=== PATIENT | female | born 1990 | race Caucasian/White ===

== ENCOUNTER → 2017-05-05 | Outpatient (REF) | payer OTHER | LOC: M LAB REF 09:43 | PROVIDERS: ATTEND Physician Assistant | DX: J02.9 Acute pharyngitis, unspecified (principal) ==

== ENCOUNTER → 2017-09-22 | Outpatient (REF) | payer OTHER | LOC: M LAB 11:32 | DX: J02.9 Acute pharyngitis, unspecified (principal) ==

== ENCOUNTER 2018-11-28 02:12 | Emergency (ER) | payer BC, OTHER ==
[~2018-11-28] VITALS: Ht 160 cm; Wt 100.0 kg
[2018-11-28] MEDS ORDERED: ENSK1TAB3 PO (02:16)
[2018-11-28] MEDS ORDERED: IBUPROFEN 600 MG TAB PO ONE (04:15)
[2018-11-28 06:14] VITALS: BP 124/81
--- NOTE | 2018-11-28 06:37 | REP ---
Clinical: Right ankle pain . Technique: AP, lateral, bilateral oblique views. Findings: No acute fracture or dislocation. Skeletal structures and joint spaces are intact and normal. Ankle mortise appears stable. No subcutaneous emphysema or radiodense foreign body. Impression: Normal right ankle radiograph series. Electronically Signed by Patrice Stoddard MD 11/28/2018 06:29 A
== END 2018-11-28 06:32 | disposition home or self-care (01) ==
LOC: M ED 02:12
DX: S99.921A Unspecified injury of right foot, initial encounter (principal); W17.89XA Other fall from one level to another, initial encounter; Y92.018 Other place in single-family (private) house as the place of occurrence of the external cause; Z79.3 Long term (current) use of hormonal contraceptives

== ENCOUNTER → 2019-11-10 | Outpatient (REF) | payer BC ==
[~2019-11-10] MED LIST: ENSK1TAB3 PO
[2019-11-10 17:38] LABS: HEMATOCRIT 43.6 % (36.0-47.0); HEMOGLOBIN 14.9 g/dl (12.0-15.5); MEAN CORPUSCULAR HEMOGLOBIN 30.5 pg (27.0-33.0); MEAN CORPUSCULAR HGB CONC 34.2 g/dl (32.0-36.5); MEAN CORPUSCULAR VOLUME 89.2 fl (80.0-96.0); PLATELET COUNT, AUTOMATED 253 10^3/uL (150-450); RED BLOOD COUNT 4.89 10^6/uL (4.00-5.40); WHITE BLOOD COUNT 9.1 10^3/uL (4.0-10.0)
[2019-11-11 08:50] LABS: HEPATITIS B SURFACE ANTIGEN NEGATIVE (NEGATIVE); HEPATITIS C VIRUS ABY INDEX 0.1 INDEX (<0.8); HIV 1&2 SCREEN CENTAUR NEGATIVE (NEGATIVE); RUBELLA IgG QUALITATIVE IMMUNE (IMMUNE)
== END ==
LOC: M PLALAB 14:15
PROVIDERS: ATTEND Advanced Practice Midwife
DX: Z34.01 Encounter for supervision of normal first pregnancy, first trimester (principal)

== ENCOUNTER → 2019-11-13 | Outpatient (REF) | payer BC ==
[2019-11-13 19:02] LABS: CHLAMYDIA DNA AMPLIFICATION NEGATIVE (NEGATIVE); GC DNA AMPLIFICATION NEGATIVE (NEGATIVE)
== END ==
LOC: M SFHCWAGY 16:49
PROVIDERS: ATTEND Advanced Practice Midwife
DX: Z34.01 Encounter for supervision of normal first pregnancy, first trimester (principal)

== ENCOUNTER → 2020-01-13 | Outpatient (CLI) | payer BC ==
--- NOTE | 2020-01-14 03:31 | REP ---
Clinical: Anatomical evaluation. Comparison: None . Findings: Examination demonstrates a single live intrauterine in transverse lie (head to maternal right). motion is identified by technologist. Placenta is noted posterior and grade zero without evidence for placenta previa or abruption. Amniotic fluid volume is normal. Cervix measures 3.9 cm in length and appears closed. No evidence for nuchal cord. Gestational age by current measurements 18 weeks 6 days with EFREN 06/09/2020 . FHR equals 142 beats per minute. BPD 4.3 cm 18 weeks 6 days HC 16.1 cm 18 weeks 6 days AC 13.6 cm 19 weeks 0 days FL 2.9 cm 19 weeks 0 days HL 2.8 cm 19 weeks 1 day HC/AC ratio 1.18 Estimated weight 270 grams ( 54th percentile). Anatomical assessment demonstrates normal structures including cranium, choroid plexus, cavum, cerebellum/posterior fossa, lungs, diaphragm, stomach, cord insertion/three-vessel cord, kidneys/bladder, spine, and extremities. Limited evaluation of the facial features and heart/ventricular outflow tracts noted. Impression: Single live intrauterine in transverse lie demonstrating appropriate estimated weight. Limited evaluation of the facial features and heart/ventricular outflow tracts. Remainder of the anatomical assessment is complete and normal.
== END ==
LOC: M WHC 12:55
PROVIDERS: ATTEND Advanced Practice Midwife
DX: Z36.89 Encounter for other specified antenatal screening (principal); O32.2XX0 Maternal care for transverse and oblique lie, not applicable or unspecified; Z3A.18 18 weeks gestation of pregnancy

== ENCOUNTER → 2020-01-29 | Outpatient (CLI) | payer BC ==
--- NOTE | 2020-01-29 14:58 | REP ---
REASON: Followup. Prior examination, 01/13/2020 failed to optimally visualize facial features, four-chamber heart, and ventricular outflow tracts. Multiple ultrasonographic images of the gravid uterus show a single living intrauterine gestation in the head to maternal left transverse lie. Doppler interrogation of the heart shows heart rate of 129 beats per minute. The placenta is posterior and not low lying. The subjective amniotic fluid volume is within normal limits. The cervix measures 4.4 cm in length and is closed. BPD 4.7 cm = 20 weeks 1 day HC 19.1 cm = 21 weeks 2 days AC 16.0 cm = 21 weeks 1 day FL 3.6 cm = 21 weeks 2 days The estimated weight is 405 grams, which is at the 49th percentile for a 21 week 1 day gestational age. The upper lip was well seen today and had a normal appearance. The four-chamber heart view, left ventricular outflow tract, and right ventricular outflow tract were still suboptimally visualized. IMPRESSION: Single living intrauterine gestation as described above with an estimated gestational age of 21 weeks 0 days via composite criteria and an estimated date of delivery of 06/10/2020 by today's exam. No anomalies were detected, however, the anatomical screen remains incomplete, as described above, and for which followup is recommended.
== END ==
LOC: M WHC 10:24
PROVIDERS: ATTEND Advanced Practice Midwife
DX: O99.212 Obesity complicating pregnancy, second trimester (principal)

== ENCOUNTER → 2020-02-16 | Outpatient (CLI) | payer BC ==
--- NOTE | 2020-02-16 11:58 | REP ---
Clinical: Anatomical evaluation. Comparison: 01/29/2020 . Findings: Examination demonstrates a single live intrauterine in variable presentation. motion is identified by technologist. Placenta is noted posterior and grade I without evidence for placenta previa or abruption. Amniotic fluid volume is normal. Cervix measures 4.6 cm in length and appears closed. No evidence for nuchal cord. Gestational age by LMP 23 weeks 5 days with EFREN 06/09/2020 . Gestational age by current measurements 23 weeks 2 day with EFREN 06/12/2020 . FHR equals 156 beats per minute. Estimated weight 597 grams ( 38th percentile). Anatomical assessment demonstrates normal structures including cranium, facial features, lungs, four-chamber heart/ventricular outflow tracts, stomach, cord insertion, kidneys/bladder. Impression: Single live intrauterine in variable presentation demonstrating appropriate interval growth. In conjunction with prior examination anatomical assessment is complete and normal.
== END ==
LOC: M WHC 09:24
PROVIDERS: ATTEND Advanced Practice Midwife
DX: O99.212 Obesity complicating pregnancy, second trimester (principal); Z36.2 Encounter for other antenatal screening follow-up; Z3A.23 23 weeks gestation of pregnancy

== ENCOUNTER → 2020-03-02 | Outpatient (REF) | payer BC ==
[~2020-03-02] MED LIST changes: +PRENTAB9 PO
[2020-03-02 13:51] LABS: HEMATOCRIT 33.9 % (36.0-47.0); HEMOGLOBIN 11.5 g/dl (12.0-15.5); MEAN CORPUSCULAR HGB CONC 33.9 g/dl (32.0-36.5); MEAN CORPUSCULAR VOLUME 97.4 fl (80.0-96.0); PLATELET COUNT, AUTOMATED 218 10^3/uL (150-450); RED BLOOD COUNT 3.48 10^6/uL (4.00-5.40); WHITE BLOOD COUNT 8.6 10^3/uL (4.0-10.0)
== END ==
LOC: M PLALAB 09:47
PROVIDERS: ATTEND Advanced Practice Midwife
DX: O99.212 Obesity complicating pregnancy, second trimester (principal); Z3A.00 Weeks of gestation of pregnancy not specified; E66.9 Obesity, unspecified
CPT/HCPCS: 36415; 82950; 85027; 86850; 86900; 86901; J2790

== ENCOUNTER → 2020-05-10 | Outpatient (REF) | payer BC | LOC: M SFHCWAGY 10:08 | PROVIDERS: ATTEND Specialist | DX: Z34.83 Encounter for supervision of other normal pregnancy, third trimester (principal); Z3A.00 Weeks of gestation of pregnancy not specified ==

== ENCOUNTER 2020-06-09 19:48 | Inpatient (IN) | payer BC ==
[2020-06-09] VITALS (17 sets, daily range): BP systolic 116–138; BP diastolic 60–89
[~2020-06-09] VITALS: Ht 160 cm; Wt 111.8 kg
[~2020-06-09 19:48] MED LIST changes: -PRENTAB9 PO
[2020-06-09] MEDS ORDERED: PRENTAB9 PO (20:31)
[2020-06-09] MEDS ORDERED: LACTATED RINGER'S 1000 ML IV STA (21:13)
[2020-06-09 21:23] LABS: HEMATOCRIT 39.8 % (36.0-47.0); HEMOGLOBIN 13.7 g/dl (12.0-15.5); MEAN CORPUSCULAR HEMOGLOBIN 31.6 pg (27.0-33.0); MEAN CORPUSCULAR HGB CONC 34.4 g/dl (32.0-36.5); MEAN CORPUSCULAR VOLUME 91.7 fl (80.0-96.0); PLATELET COUNT, AUTOMATED 211 10^3/uL (150-450); RED BLOOD COUNT 4.34 10^6/uL (4.00-5.40); WHITE BLOOD COUNT 15.2 10^3/uL (4.0-10.0)
[2020-06-09] MEDS ORDERED: FENTANYL 2MCG/ML ROPIVACAINE 0.2% IN 0.9% NACL 100ML IVBAG As Ordered ONE (22:12)
[2020-06-09] MEDS: LR 1,000 ML IV SCH (22:25)
--- NOTE | 2020-06-09 23:02 | HPEPDOC ---
Obstetrical History & Physical General Date of Admission Jun 09, 2020 at 20:57 History of Present Illness Rayne is a 29yo with SIUP at 40w2d by lmp c/w 9wk u/s presenting with CC of painful, regular ctx. She states she began tristen around 0600 today. Had routine OB visit and was 3/-2, had sweeping performed. Since clinic visit, ctx are getting closer and more painful. Feels good FM, no vaginal bleeding, no LOF. Chief Complaint: Contractions, term Information Provided By: Patient Care Care: Good Care Dating Final EDC: Jun 07, 2020 Final EDC by: LMP, 1st trimester (US) Antepartum Course Diagnos(e)s Morbid obesity, Rh negative, received rhogam 03/30/20 Height (inches): 63 Pre- weight (lbs.): 246 Past Medical History Past Obstetrical History : Past Obstetrical History: Primgravida [employer]PHOL[employer]PER History: No pertinent history Past Medical History Medical History Obesity Surgical History: Ferron teeth Family History Significant Family History: No pertinent family hx Social History Family situation: Spouse/partner home Psychosocial History: No pertinent psych hx * Smoker: non-smoker Alcohol: Denies Drugs: denies Allergies Coded Allergies: No Known Allergies (Verified Allergy, Unknown, 11/28/18) Medications Scheduled Desogestrel-Ethinyl Estradiol (Enskyce 28 Tablet) 1 Each Tablet, 1 TAB PO DAILY No.137/Iron/Folic Acd ( Vitamin Tablet) 1 Each Tablet, 1 TAB PO DAILY Physical Examination Physical Examination GENERAL: Alert and oriented times three. ABDOMEN: Gravid and non-tender to touch. FETUS: Is vertex (VTX) by sterile vaginal examination (SVE) EXTREMITIES: trace edema BLE Vital Signs/I&O Vital Signs Date Time Temp Pulse Resp B/P (MAP) Pulse Ox O2 Delivery O2 Flow Rate FiO2 06/09/20 20:12 98.3 95 18 138/89 (105) Laboratory Data 24H LABS Laboratory Tests 2 06/09/20 21:02: Serology Scanned Report Hepatitis B Testing 06/09/20 21:18: Nucleated Red Blood Cells % (auto) 0.0 CBC/BMP Laboratory Tests 06/09/20 21:18 Pertinent Laboratoy Data Blood Type: A- RBC Antibody Screen: Negative HIV: Negative Hepatitis B: Negative Hepatitis C: Negative Rapid Plasma Reagin: Nonreactive Rubella: Immune Chlamydia/Gonorrhea: Negative Group B Streptococcus: Negative Glucose Tolerance Test: 125 Anatomy Ultrasound Ultrasound Date: January 13, 2020 Placenta Location: Posterior Normal Anatomy: Yes Placenta Previa: No Other Ultrasounds f/u u/s for further views on 01/28 and 02/05 Steroid Therapy Steroid Therapy: No Vaginal Examination Dilation: 5 cm Effacement: 90% Station: -2 Cervical Consistency: Soft Cervical Position: Middle Presentation: Cephalic presentation Assessment Heart Rate (FHR): 150 Variability: Moderate Accelerations: Positive Decelerations: None Tocometer Contractions: Yes Frequency: regular, every 2-5 min. Duration: greater than 60 seconds Strength: palpated as moderate Assessment/Plan Assessment Rayne is a 29yo with SIUP at 40w2d by lmp c/w 9wk u/s in active labor with SCE 5/90/-2, regular ctx. Cat I FHRT. Vitals wnl. Benign exam. Cephalic by SCE. GBS neg. PMhx/PNC significant for: Morbid obesity, Rh negative, received rhogam 03/30/20 Plan Admit and orient. Pick Up And Delivery Driver and consent. Diet: clear liquids Group B Streptococcus (GBS) negative Labs and intravenous (IV) per unit protocol. Lactated Ringers (LR): Bolus 800 mL, then at 125 mL/hr prior to epidural Anticipate normal spontaneous delivery () MD Evelia Bragg Katrina D MD Jun 09, 2020 22:59
[2020-06-10] VITALS (9 sets, daily range): BP systolic 104–126; BP diastolic 53–78
[2020-06-10] MEDS ORDERED: EPIDURAL/PCA KEYS XX PRN (00:15)
[2020-06-10] MEDS ORDERED: ONDANSETRON 4MG/2ML VIAL IV PRN (00:15)
[2020-06-10] MEDS ORDERED: FENTANYL/ROPIVACAINE/NACL BAG 100 ML EPIDURAL SCH (00:15)
[2020-06-10] MEDS ORDERED: EPIDURAL COMMENT XX SCH (00:15)
[2020-06-10] MEDS ORDERED: REFRIGERATOR IV KEYS XX PRN (00:15)
[2020-06-10] MEDS ORDERED: ePHEDrine SULFATE 25 MG/5 ML(5MG/ML) SYRINGE IV PRN (00:15)
[2020-06-10] MEDS ORDERED: NALOXONE INJ 0.4MG/1ML VIAL (J2310 PER 1MG) IV PRN (00:15)
[2020-06-10] MEDS ORDERED: LACTATED RINGER'S 1000 ML IV PRN (00:15)
[2020-06-10] MEDS ORDERED: diphenhydrAMINE 50MG/ML VIAL (J1200) IV PRN (00:15)
[2020-06-10] MEDS ORDERED: OXYTOCIN 30 UNITS IN 0.9% NaCl 500ML IV BAG (J2590) As Ordered ONE (03:48)
--- NOTE | 2020-06-10 03:56 | IPNPDOC ---
Text Note Date of Service The patient was seen on 06/10/20. NOTE Intrapartum Note Pt doing well, comfortable with epidural. Vitals wnl, afebrile Cat I-II FHRT with mod shayy, +accels, occasional small non-repetitive variable decels Ctx q5 min SCE: C/C/0, AROM performed with mod mec noted Tried practice pushes with 2 ctx, given spacing between ctx will start pitocin and titrate up per protocol to adequate ctx pattern Will allow for passive descent x1 and then begin pushing in earnest Will continue to closely monitor NICU DrNadine will be notified of mec Safe to proceed Yamila Altamirano MD VS,Pretty, I+O VSPretty I+O Laboratory Tests 06/09/20 21:18 Vital Signs Date Time Temp Pulse Resp B/P (MAP) Pulse Ox O2 Delivery O2 Flow Rate FiO2 06/10/20 00:07 81 108/53 (71) 06/09/20 23:36 98.3 18 Yamila Altamirano MD Jun 10, 2020 03:55
[2020-06-10] MEDS ORDERED: OXYTOCIN DRIP 30 UNITS in IV 1 EA IV SCH ×2 (04:00→07:50)
[2020-06-10] MEDS: LR 1,000 ML IV SCH (04:50)
[2020-06-10] MEDS ORDERED: METHYLERGONOVINE MALEATE 0.2 MG/ML VIAL (J2210) As Ordered ONE (07:00)
--- NOTE | 2020-06-10 07:49 | DNPDOC ---
[facility] Delivery Note Delivery Note DATE OF DELIVERY: 06/10/2020 PREDELIVERY DIAGNOSIS: 40w3d gestation and labor. POST DELIVERY DIAGNOSIS: Delivered. PROCEDURE: Spontaneous vaginal delivery MACHINE FILLER: Dr. Yamila Altamirano MD ANESTHESIA: epidural ESTIMATED BLOOD LOSS: 300 mL. FINDINGS: 8 pound 6 ounce (3800g) female , Score 9/9 DELIVERY SUMMARY: Rayne is a 29yo [id number] s/p uncomplicated at 40w3d after presenting in active labor at 5cm, delivering at 0650 on 06/10/20. She received an epidural and at C/C she had AROM with moderate meconium noted. She did passive descent fo r an hour and then began pushing. With good maternal effort, infant's head delivered OA, restituted JENNIFER. The left anterior shoulder delivered with ease and the corpus immediately followed. The was placed on the maternal abdomen, spontaneous cry noted. Nose and mouth suctioned with bulb suction, apgars 9/9. After two minutes, cord was clamped and cut by FOB. Cord blood obtained for MBT A neg. With traction on the cord and uterine massage, placenta delivered spontaneously and intact with centrally inserted 3 vessel cord. IV pitocin given per protocol. More uterine massage performed and fundus then firm at u-2cm after a dose of 0.2mg methergine IM was given. Inspection of vagina and perineum revealed a left labial laceration and small 2mll repaired in routine fashion using 3-0 vicryl with excellent reapproximation. Tissue was edematous and each poke of the suture needle caused oozing, so one laparotomy sponge was left to compress just inside the vagina and plan is to remove it in 1 hour. Otherwise counts correct. Both mom and baby were doing well when I left the room. MD Evelia Bragg Katrina D MD Jun 10, 2020 07:49
[2020-06-10] MEDS ORDERED: DIBUCAINE 1% OINTMENT 30GM TOP PRN (08:00)
[2020-06-10] MEDS ORDERED: METHYLERGONOVINE MALEATE 0.2 MG/ML VIAL (J2210) IM ONE (08:00)
[2020-06-10] MEDS ORDERED: ACETAMINOPHEN TAB 650MG DOSE (2X325MG) PO PRN (08:00)
[2020-06-10] MEDS ORDERED: IBUPROFEN 600MG TAB PO PRN (08:00)
[2020-06-10] MEDS ORDERED: RHOGAM 300 MCG (1500 IU) INJ (J2790) IM SCH (08:00)
[2020-06-10] MEDS ORDERED: MEASLES,MUMPS,RUBELLA VACCINE INJ (MMR-II) (90707) SC SCH (08:00)
[2020-06-10] MEDS: PRENATAL VITAMINS CHEWABLE TABLET PO SCH (08:58)
[2020-06-10] MEDS: IBUPROFEN 800 MG TAB PO PRN ×2 (08:58→18:11)
[2020-06-10] MEDS: DOCUSATE SODIUM 100 MG CAP PO PRN (20:41)
[2020-06-10] MEDS: ACETAMINOPHEN 500 MG TAB PO PRN (23:36)
[2020-06-11 06:00] VITALS: BP 118/72
--- NOTE | 2020-06-11 07:15 | IPNPDOC ---
Text Note Date of Service The patient was seen on 06/11/20. NOTE PP #1 Feels well. No complaints. . Adequate pain management. Voiding. VSS, afebrile, normotensive Breasts soft, nipples intact Fundus firm, NT, down 1 FB Perineum well approximated without edema Lochi rubra light without odor PP #1, routine care Anticipate D/C in am VS,Fishbone, I+O VS, Fishbone, I+O Vital Signs Date Time Temp Pulse Resp B/P (MAP) Pulse Ox O2 Delivery O2 Flow Rate FiO2 06/11/20 06:00 98.5 84 18 118/72 (87) 06/10/20 10:00 97 I&O- Last 24 Hours up to 6 AM 06/11/20 06:00 Intake Total 3913 ml Output Total 1100 ml Balance 2813 ml Joanie Scott CNM Jun 11, 2020 07:15
[2020-06-11] MEDS: PRENATAL VITAMINS CHEWABLE TABLET PO SCH (07:47)
[2020-06-11] MEDS: IBUPROFEN 800 MG TAB PO PRN ×2 (07:48→16:42)
[2020-06-11 18:00] VITALS: BP 118/65
[2020-06-11] MEDS: DOCUSATE SODIUM 100 MG CAP PO PRN (19:56)
[2020-06-11] MEDS: ACETAMINOPHEN 500 MG TAB PO PRN (19:57)
[2020-06-12 06:00] VITALS: BP 126/68
[2020-06-12] MEDS: PRENATAL VITAMINS CHEWABLE TABLET PO SCH (08:36)
[2020-06-12] MEDS: IBUPROFEN 800 MG TAB PO PRN (08:37)
--- NOTE | 2020-06-12 10:20 | IPNPDOC ---
Progress Note Date of Service: Jun 12, 2020 Day#: 2 Progress Note SUBJECT: Status post . She has been ambulating, voiding spontaneously without issue and tolerating regular diet. Lochia decreasing/minimal. Patient is ambulating well. OBJECTIVE: VITAL SIGNS: Within normal limits, afebrile. Alert and oriented times three. Abdomen: Fundus firm at U-2. Soft, NTTP. ASSESSMENT: Status post uncomplicated spontaneous vaginal delivery. Vitals within normal limits, afebrile, hemodynamically stable with no evidence of infection. PLAN: Discharge to home today. Tylenol and Motrin for pain. Routine instructions/precautions reviewed. Routine PP visit in 6 weeks in clinic. VS, I&O, 24H, Fishbone Vital Signs/I&O Vital Signs Date Time Temp Pulse Resp B/P (MAP) Pulse Ox O2 Delivery O2 Flow Rate FiO2 06/12/20 06:00 96.7 82 16 126/68 (87) 06/11/20 18:00 Room Air 06/10/20 10:00 97 BETTY CURRY DO Jun 12, 2020 10:20
== END 2020-06-12 12:40 | disposition home or self-care (01) | DRG 560 ==
LOC: M LDO 19:48 → M LDI 20:57 → M OBS 06-10 09:39
PROVIDERS: ADMIT Obstetrics & Gynecology; ATTEND Obstetrics & Gynecology
PROC: 10E0XZZ Delivery of Products of Conception, External Approach (ICD-10-PCS; principal; 2020-06-10)
PROC: 0KQM0ZZ Repair Perineum Muscle, Open Approach (ICD-10-PCS; 2020-06-10)
PROC: 10907ZC Drainage of Amniotic Fluid, Therapeutic from Products of Conception, Via Natural or Artificial Opening (ICD-10-PCS; 2020-06-10)
DX: O48.0 Post-term pregnancy (principal); Z3A.40 40 weeks gestation of pregnancy; O99.214 Obesity complicating childbirth; E66.01 Morbid (severe) obesity due to excess calories; O77.0 Labor and delivery complicated by meconium in amniotic fluid; O70.1 Second degree perineal laceration during delivery; Z37.0 Single live birth

== ENCOUNTER → 2020-09-05 | Outpatient (REF) | payer BC, OTHER ==
[~2020-09-05] MED LIST changes: +PRENTAB9 PO
== END ==
LOC: M SFHCWAGY 17:17
PROVIDERS: ATTEND Obstetrics & Gynecology
DX: Z12.4 Encounter for screening for malignant neoplasm of cervix (principal)

== ENCOUNTER → 2021-04-25 | Outpatient (CLI) | payer OTHER ==
[2021-04-25 13:51] LABS: BASO # 0.1 10^3/uL (0.0-0.2); BASO % 0.6 % (0.0-1.0); EOS # 0.1 10^3/uL (0.0-0.5); EOS % 1.1 % (0.0-3.0); HEMATOCRIT 44.1 % (36.0-47.0); LYMPH % 21.6 % (24.0-44.0); MEAN CORPUSCULAR HEMOGLOBIN 30.9 pg (27.0-33.0); MEAN CORPUSCULAR VOLUME 90.9 fl (80.0-96.0); MONO # 0.6 10^3/uL (0.0-0.8); NEUTROPHILS # 6.5 10^3/uL (1.5-8.5); NEUTROPHILS % 70.3 % (36.0-66.0); PLATELET COUNT, AUTOMATED 252 10^3/uL (150-450); RED BLOOD COUNT 4.85 10^6/uL (4.00-5.40); WHITE BLOOD COUNT 9.3 10^3/uL (4.0-10.0)
[2021-04-25 14:13] LABS: HEMOGLOBIN A1c 4.9 %
[2021-04-25 14:29] LABS: ALBUMIN 3.9 GM/DL (3.2-5.2); ALT/SGPT 19 U/L (12-78); BILIRUBIN,TOTAL 0.5 MG/DL (0.2-1.0); BLOOD UREA NITROGEN 10 MG/DL (7-18); CALCIUM LEVEL 9.6 MG/DL (8.5-10.1); CARBON DIOXIDE LEVEL 25 MEQ/L (21-32); CHLORIDE LEVEL 107 MEQ/L (98-107); CHOLESTEROL LEVEL 177 MG/DL (<200); CHOLESTEROL RISK RATIO 3.403 (<5); GLOMERULAR FILTRATION RATE > 60.0 (>60); GLUCOSE, FASTING 89 MG/DL (70-100); HDL CHOLESTEROL 52 MG/DL (>40); LDL CHOLESTEROL 113 MG/DL (<100); NON-HDL-C 125 MG/DL; POTASSIUM SERUM 4.2 MEQ/L (3.5-5.1); SODIUM LEVEL 139 MEQ/L (136-145); TOTAL PROTEIN 7.2 GM/DL (6.4-8.2); TRIGLYCERIDES LEVEL 58 MG/DL (<150)
== END ==
LOC: M PLALAB 09:12
PROVIDERS: ATTEND Student in an Organized Health Care Education/Training Program
DX: Z00.00 Encounter for general adult medical examination without abnormal findings (principal)

== ENCOUNTER → 2023-01-31 | Outpatient (CLI) | payer OTHER, MEDICAID | LOC: M SOG 09:02 | PROVIDERS: ATTEND Physician Assistant | DX: M25.531 Pain in right wrist (principal) ==

== ENCOUNTER 2023-05-27 06:10 | Day surgery (SDC) | payer OTHER ==
[~2023-05-27] VITALS: Ht 162.6 cm; Wt 110.6 kg
[~2023-05-27 06:10] MED LIST changes: +CONC54TA4 PO; +VITMTA PO; +WELL100T2 PO; +ZOLO50TA PO
[2023-05-27] MEDS ORDERED: MIDAZOLAM INJ 2MG/2ML VIAL As Ordered ONE (06:58)
[2023-05-27] MEDS ORDERED: LIDOCAINE 2% 100MG/5ML SDV (FOR ANES.) As Ordered ONE (06:58)
[2023-05-27] MEDS ORDERED: fentaNYL 100 MCG/2 ML INJECTION As Ordered ONE (06:58)
[2023-05-27] MEDS ORDERED: ONDANSETRON 4MG 2ML VIAL As Ordered ONE (06:58)
[2023-05-27] MEDS ORDERED: propofoL 200 MG/20 ML VIAL As Ordered ONE (06:58)
[2023-05-27] MEDS ORDERED: KETOROLAC 60MG 2ML VIAL As Ordered ONE (06:58)
[2023-05-27] MEDS ORDERED: LR 1,000 ML IV SCH ×2 (07:00→08:05)
[2023-05-27] MEDS ORDERED: dexmedeTOMIDine (4MCG/ML)200MCG/50ML BTL (PRECEDEX) As Ordered ONE (07:01)
[2023-05-27] MEDS ORDERED: fentaNYL 100 MCG/2 ML INJECTION IV PRN (08:05)
[2023-05-27] MEDS ORDERED: ONDANSETRON 4MG 2ML VIAL IV PRN (08:05)
[2023-05-27] MEDS ORDERED: HYDROMORPHONE HCL 0.5 MG/ 0.5 ML SYRINGE IV PRN (08:05)
[2023-05-27] MEDS ORDERED: oxyCODONE 5MG TAB PO PRN (08:05)
[2023-05-27 09:05] VITALS: BP 110/60; TEMP 98.1; O2SAT 98
== END 2023-05-27 09:07 | disposition home or self-care (01) ==
LOC: M SDC 06:10
PROVIDERS: ATTEND Orthopaedic Surgery Hand Surgery
DX: G56.01 Carpal tunnel syndrome, right upper limb (principal); F32.A Depression, unspecified; F41.9 Anxiety disorder, unspecified; F90.9 Attention-deficit hyperactivity disorder, unspecified type; Z79.899 Other long term (current) drug therapy
CPT/HCPCS: 29848; 81025; J0665; J1100; J1885; J2250; J2405; J3010